=== PATIENT | male | born 1980 | race Caucasian/White ===

== ENCOUNTER 2017-05-12 09:13 | Emergency (ER) | payer OTHER ==
[2017-05-12 09:23] VITALS: BP 138/65; PULSE 99; RESP 16; TEMP 98
--- NOTE | 2017-05-12 09:45 | ED ---
General Adult HPI - General Chief complaint: ENT Stated complaint: left ear pain Time Seen by Provider: 05/12/17 09:35 Source: patient, RN notes reviewed Mode of arrival: ambulatory Limitations: no limitations - History of Present Illness Initial comments: 36-year-old male presents to the emergency department with a chief complaint of left-sided ear pain. Patient states she's had this for the past 2 days. Patient states she's had this in the past and his doctor told him he had fluid on the ear. Patient states he is having the exact same symptoms. Patient states isn't feeling he is sick. Patient's any drainage from the ear. Patient states he just has a fullness to that ear. Patient states he hasn't had any fever chills with this. Patient denies any cough cold or runny nose. Patient was concerned due to his continued left ear pain so he thought that he should be evaluated.Patient denies any recent fever, chills, shortness of breath, chest pain, back pain, abdominal pain, nausea vomiting, numbness or tingling, dysuria or hematuria, constipation or diarrhea, headaches or visual changes, or any other current symptoms. - Related Data Previous Rx's Medication Instructions Recorded Pseudoephedrine HCl [Sudafed 240 mg PO DAILY #10 tab.er.24h 05/12/17 24-Hour] Allergies Allergy/AdvReac Type Severity Reaction Status Date / Time No Known Allergies Allergy Verified 05/12/17 09:35 Review of Systems ROS Statement: Those systems with pertinent positive or pertinent negative responses have been documented in the HPI. ROS Other: All systems not noted in ROS Statement are negative. Past Medical History Past Medical History: No Reported History Additional Past Medical History / Comment(s): Chronic back pain. History of Any Multi-Drug Resistant Organisms: None Reported Past Surgical History: No Surgical Hx Reported Additional Past Surgical History / Comment(s): Bilateral cheek fracture/repair- pt. reports this was "a couple years ago." Past Anesthesia/Blood Transfusion Reactions: No Reported Reaction Past Psychological History: No Psychological Hx Reported, Bipolar Smoking Status: Current every day smoker - Past Family History Father Additional Family Medical History / Comment(s): He should've states he does not know anything about his father but he knows he has and has history of alcohol abuse. Mother Family Medical History: COPD Additional Family Medical History / Comment(s): Mother at 62 from COPD Sister(s) Additional Family Medical History / Comment(s): Patient states he has one sister that he is not in contact with. He has no brothers and no children. General Exam - General Exam Comments Initial Comments: General exam: Alert, active, comfortable in no apparent distress Head: Normocephalic Eyes: Normal reaction of pupils, equal size, normal range of extraocular motion Ears: normal external ear canals, pink tympanic membranes with normal cone of light minimal fluid noted behind left tympanic membrane Nose: clear with pink turbinates Throat: no erythema or exudates with normal sized tonsils Neck: no masses, no nuchal rigidity Chest: no chest wall deformity Lungs: equal air entry with no crackles or wheeze CVS: S1 and S2 normal with no audible mumurs, regular rhythm Spine: no scoliosis or deformity Skin: no rashes Neurological: No focal deficits, tone is normal in all 4 extremities Limitations: no limitations Course Vital Signs 05/12/17 09:21 Temperature 98 F Pulse Rate 99 Respiratory 16 Rate Blood Pressure 138/65 O2 Sat by Pulse 97 Oximetry Medical Decision Making - Medical Decision Making 36-year-old male presents for left ear pain. Tenderness minimal fluid noted behind the left ear. This time was patient Sudafed to see if this doesn't alleviate his symptoms. We discussed follow-up with Dr. patel parameters all patient's questions. He stated that he understood any significant plan. All questions have been answered. He will be discharged home. Disposition Clinical Impression: Fluid level behind tympanic membrane of left ear Disposition: HOME SELF-CARE Condition: Stable Instructions: Earache (ED) Additional Instructions: Please use medication as discussed. Please follow up with family doctor if symptoms have not improved over the next two days. Please return to the emergency room if your symptoms increase or worsen or for any other concerns. Prescriptions: Pseudoephedrine HCl [Sudafed 24-Hour] 240 mg PO DAILY #10 tab.er.24h Referrals: Harriett Allred MD [STAFF PHYSICIAN] - 1-2 days Time of Disposition: 09:44
== END 2017-05-12 09:58 | disposition home or self-care (01) ==
LOC: EC 09:13
DX: H73.892 Other specified disorders of tympanic membrane, left ear (principal); F17.200 Nicotine dependence, unspecified, uncomplicated
CPT/HCPCS: 99282

== ENCOUNTER 2017-08-28 17:51 | Emergency (ER) | payer BC, OTHER ==
[2017-08-28 18:21] VITALS: RESP 18
--- NOTE | 2017-08-28 18:59 | ED ---
General Adult HPI - General Chief complaint: Extremity Injury, Lower Stated complaint: Knee pain Time Seen by Provider: 08/28/17 18:34 Source: patient, RN notes reviewed Mode of arrival: ambulatory Limitations: no limitations - History of Present Illness Initial comments: Patient is a 37-year-old male who presents emergency room today with chief complaint of an injury to the left knee. States he was at work yesterday when he twisted it. Patient states that it's worse with certain movements especially when he tries to pivot. Patient denies any other complaints or symptoms. Patient denies any recent fever, chills, shortness of breath, chest pain, back pain, abdominal pain, nausea or vomiting, numbness or tingling, headaches or visual changes, or any other complaints. - Related Data Previous Rx's Medication Instructions Recorded Ibuprofen [Motrin] 600 mg PO Q6HR PRN #40 day 08/28/17 Allergies Allergy/AdvReac Type Severity Reaction Status Date / Time No Known Allergies Allergy Verified 08/28/17 18:45 Review of Systems ROS Statement: Those systems with pertinent positive or pertinent negative responses have been documented in the HPI. ROS Other: All systems not noted in ROS Statement are negative. Past Medical History Past Medical History: No Reported History Additional Past Medical History / Comment(s): Chronic back pain. History of Any Multi-Drug Resistant Organisms: None Reported Past Surgical History: No Surgical Hx Reported Additional Past Surgical History / Comment(s): Bilateral cheek fracture/repair- pt. reports this was "a couple years ago." Past Anesthesia/Blood Transfusion Reactions: No Reported Reaction Past Psychological History: Anxiety, Bipolar, Depression Smoking Status: Current every day smoker Past Alcohol Use History: None Reported Past Drug Use History: Marijuana - Past Family History Father Additional Family Medical History / Comment(s): He should've states he does not know anything about his father but he knows he has and has history of alcohol abuse. Mother Family Medical History: COPD Additional Family Medical History / Comment(s): Mother at 62 from COPD Sister(s) Additional Family Medical History / Comment(s): Patient states he has one sister that he is not in contact with. He has no brothers and no children. General Exam - General Exam Comments Initial Comments: General: The patient is awake and alert, in no distress, and does not appear acutely ill. Neck: The neck is supple, there is no tenderness or JVD. Cardiovascular: There is a regular rate and rhythm. No murmur, rub or gallop is appreciated. Respiratory: Lungs are clear to auscultation, respirations are non-labored, breath sounds are equal. No wheezes, stridor, rales, or rhonchi. Musculoskeletal: Patient does have moderate swelling to left knee. Shows good range of motion both flexion and extension. Does have tenderness over the lateral and medial aspects with valgus and varus stress. Sensation is intact pulses equal bilaterally 2+. Strength 5/5. Neurological: A&O x 3. CN II-XII intact, There are no obvious motor or sensory deficits. Coordination appears grossly intact. Speech is normal. Skin: Skin is warm and dry and no rashes or lesions are noted. Psychiatric: Normal mood and affect. Limitations: no limitations Course Vital Signs 08/28/17 18:19 Temperature 98.5 F Pulse Rate 87 Respiratory 18 Rate Blood Pressure 118/59 O2 Sat by Pulse 95 Oximetry Medical Decision Making - Medical Decision Making The patient's x-rays reviewed are negative for any acute fracture dislocation. Patient given a knee immobilizer here in the emergency room for stability and will be discharged home with anti-inflammatories and crutches to use. Advised follow-up with orthopedics over the next 2 days. Disposition Clinical Impression: Knee injury Disposition: HOME SELF-CARE Condition: Good Instructions: Knee Pain (ED) Additional Instructions: Please follow-up with orthopedics over the next 2 days. Please use knee immobilizer when up and moving around. Please do not sleep with knee immobilizer on. Please ice elevate the affected area. Please return here to the emergency room if any symptoms increase or worsen or for any other concerns. Prescriptions: Ibuprofen [Motrin] 600 mg PO Q6HR PRN #40 day PRN Reason: Pain Referrals: None,Stated [Primary Care Provider] - 1-2 days Wilbert Blackwell MD [STAFF PHYSICIAN] - 1-2 days Time of Disposition: 19:26
[2017-08-28 19:35] VITALS: BP 119/60; PULSE 80; TEMP 98.3
--- NOTE | 2017-08-28 19:44 | XR ---
PROCEDURE: XR knee complete LT - 3V DATE AND TIME: 08/28/2017 7:01 PM REFERRING PHYSICIAN: Melvin Alegria CLINICAL INDICATION: PHH, Pain TECHNIQUE: Department protocol. COMPARISON: None FINDINGS: There is no fracture or malalignment. The soft tissues are unremarkable. IMPRESSION: NO ACUTE PROCESS.
== END 2017-08-28 19:35 | disposition home or self-care (01) ==
LOC: EC 17:51
DX: S89.92XA Unspecified injury of left lower leg, initial encounter (principal); F17.200 Nicotine dependence, unspecified, uncomplicated; X50.1XXA Overexertion from prolonged static or awkward postures, initial encounter; Y93.89 Activity, other specified; Y99.0 Civilian activity done for income or pay; Y92.69 Other specified industrial and construction area as the place of occurrence of the external cause
CPT/HCPCS: 73562; 99283; L1830

== ENCOUNTER 2017-09-25 04:18 | Emergency (ER) | payer BC ==
--- NOTE | 2017-09-25 05:16 | ED ---
SOB HPI - General Chief Complaint: Shortness of Breath Stated Complaint: KELLY Time Seen by Provider: 09/25/17 04:25 Source: patient Mode of arrival: ambulatory Limitations: no limitations - History of Present Illness Initial Comments: This patient is a 37-year-old man who presents with complaint that he believes he has pneumonia. The patient states that over the past night he has had pain to the right mid back, as well as a little bit of a cough and also some mild shortness of breath. MD Complaint: shortness of breath, cough, chest pain -: hour(s) Radiation: back Severity: moderate Quality: aching Consistency: constant Improves With: nothing Worsens With: nothing Associated Symptoms: cough Treatments Prior to Arrival: none - Related Data Previous Rx's Medication Instructions Recorded Ibuprofen [Motrin] 600 mg PO Q6HR PRN #40 day 08/28/17 Azithromycin [Zithromax Z-pack] 250 mg PO DIRECTED #6 tab 09/25/17 Allergies Allergy/AdvReac Type Severity Reaction Status Date / Time No Known Allergies Allergy Verified 09/25/17 04:26 Review of Systems ROS Statement: Those systems with pertinent positive or pertinent negative responses have been documented in the HPI. ROS Other: All systems not noted in ROS Statement are negative. Constitutional: Denies: fever, chills Respiratory: Reports: as per HPI, cough, dyspnea. Denies: hemoptysis Cardiovascular: Denies: chest pain, palpitations, edema Gastrointestinal: Denies: abdominal pain, nausea, vomiting Genitourinary: Denies: dysuria, hematuria Musculoskeletal: Reports: as per HPI, back pain Skin: Denies: rash Neurological: Denies: headache, weakness, numbness Past Medical History Past Medical History: No Reported History Additional Past Medical History / Comment(s): Chronic back pain. History of Any Multi-Drug Resistant Organisms: None Reported Past Surgical History: No Surgical Hx Reported Additional Past Surgical History / Comment(s): Bilateral cheek fracture/repair- pt. reports this was "a couple years ago." Past Anesthesia/Blood Transfusion Reactions: No Reported Reaction Past Psychological History: Anxiety, Bipolar, Depression Smoking Status: Current every day smoker Past Alcohol Use History: None Reported Past Drug Use History: Marijuana - Past Family History Father Additional Family Medical History / Comment(s): He should've states he does not know anything about his father but he knows he has and has history of alcohol abuse. Mother Family Medical History: COPD Additional Family Medical History / Comment(s): Mother at 62 from COPD Sister(s) Additional Family Medical History / Comment(s): Patient states he has one sister that he is not in contact with. He has no brothers and no children. General Exam Limitations: no limitations General appearance: alert Head exam: Present: atraumatic, normocephalic Eye exam: Present: normal appearance. Absent: scleral icterus, conjunctival injection Neck exam: Present: normal inspection Respiratory exam: Present: normal lung sounds bilaterally, wheezes. Absent: respiratory distress, rales, rhonchi, stridor Cardiovascular Exam: Present: regular rate, normal rhythm, normal heart sounds. Absent: systolic murmur, diastolic murmur, rubs, gallop GI/Abdominal exam: Present: soft. Absent: distended, tenderness, guarding, rebound, mass Extremities exam: Present: normal inspection, normal capillary refill. Absent: pedal edema, calf tenderness Back exam: Present: paraspinal tenderness. Absent: CVA tenderness (R), CVA tenderness (L) Neurological exam: Present: alert Skin exam: Present: warm, dry, intact, normal color. Absent: rash Course Vital Signs 09/25/17 09/25/17 09/25/17 04:19 06:36 07:31 Temperature 97.8 F 98.1 F Pulse Rate 78 72 78 Respiratory 20 18 14 Rate Blood Pressure 147/76 143/75 142/88 O2 Sat by Pulse 93 L 99 96 Oximetry Medical Decision Making - Lab Data Result diagrams: 09/25/17 06:07 09/25/17 06:07 Lab Results 09/25/17 09/25/17 09/25/17 Range/Units 05:11 06:07 06:07 WBC 12.3 H (3.8-10.6) k/uL RBC 4.80 (4.30-5.90) m/uL Hgb 14.6 (13.0-17.5) gm/dL Hct 44.2 (39.0-53.0) % MCV 92.0 (80.0-100.0) fL MCH 30.3 (25.0-35.0) pg MCHC 32.9 (31.0-37.0) g/dL RDW 12.9 (11.5-15.5) % Plt Count 264 (150-450) k/uL Neutrophils % 81 % Lymphocytes % 8 % Monocytes % 3 % Eosinophils % 6 % Basophils % 0 % Neutrophils # 10.0 H (1.3-7.7) k/uL Lymphocytes # 0.9 L (1.0-4.8) k/uL Monocytes # 0.4 (0-1.0) k/uL Eosinophils # 0.8 H (0-0.7) k/uL Basophils # 0.0 (0-0.2) k/uL D-Dimer (<0.60) mg/L FEU Sodium 142 (137-145) mmol/L Potassium 4.2 (3.5-5.1) mmol/L Chloride 103 (98-107) mmol/L Carbon Dioxide 26 (22-30) mmol/L Anion Gap 13 mmol/L BUN 11 (9-20) mg/dL Creatinine 1.00 (0.66-1.25) mg/dL Est GFR (MDRD) Af Amer >60 (>60 ml/min/1.73 sqM) Est GFR (MDRD) Non-Af >60 (>60 ml/min/1.73 sqM) Glucose 89 (74-99) mg/dL Calcium 9.7 (8.4-10.2) mg/dL Total Bilirubin 1.1 (0.2-1.3) mg/dL AST 26 (17-59) U/L ALT 31 (21-72) U/L Alkaline Phosphatase 85 (38-126) U/L C-Reactive Protein 12.6 H (<10.0) mg/L Total Protein 7.6 (6.3-8.2) g/dL Albumin 4.5 (3.5-5.0) g/dL Urine Color Yellow Urine Appearance Clear (Clear) Urine pH 6.0 (5.0-8.0) Ur Specific [place] 1.019 (1.001-1.035) Urine Protein Trace H (Negative) Urine Glucose (UA) Negative (Negative) Urine Ketones 2+ H (Negative) Urine Blood Negative (Negative) Urine Nitrite Negative (Negative) Urine Bilirubin Negative (Negative) Urine Urobilinogen 3.0 (<2.0) mg/dL Ur Leukocyte Esterase Negative (Negative) Urine Opiates Screen Detected H (NotDetected) Ur Oxycodone Screen Not Detected (NotDetected) Urine Methadone Screen Not Detected (NotDetected) Ur Propoxyphene Screen Not Detected (NotDetected) Ur Barbiturates Screen Not Detected (NotDetected) U Tricyclic Antidepress Not Detected (NotDetected) Ur Phencyclidine Scrn Not Detected (NotDetected) Ur Amphetamines Screen Detected H (NotDetected) U Methamphetamines Scrn Detected H (NotDetected) U Benzodiazepines Scrn Not Detected (NotDetected) Urine Cocaine Screen Detected H (NotDetected) U Marijuana (THC) Screen Detected H (NotDetected) 09/25/17 Range/Units 06:07 WBC (3.8-10.6) k/uL RBC (4.30-5.90) m/uL Hgb (13.0-17.5) gm/dL Hct (39.0-53.0) % MCV (80.0-100.0) fL MCH (25.0-35.0) pg MCHC (31.0-37.0) g/dL RDW (11.5-15.5) % Plt Count (150-450) k/uL Neutrophils % % Lymphocytes % % Monocytes % % Eosinophils % % Basophils % % Neutrophils # (1.3-7.7) k/uL Lymphocytes # (1.0-4.8) k/uL Monocytes # (0-1.0) k/uL Eosinophils # (0-0.7) k/uL Basophils # (0-0.2) k/uL D-Dimer 0.47 (<0.60) mg/L FEU Sodium (137-145) mmol/L Potassium (3.5-5.1) mmol/L Chloride (98-107) mmol/L Carbon Dioxide (22-30) mmol/L Anion Gap mmol/L BUN (9-20) mg/dL Creatinine (0.66-1.25) mg/dL Est GFR (MDRD) Af Amer (>60 ml/min/1.73 sqM) Est GFR (MDRD) Non-Af (>60 ml/min/1.73 sqM) Glucose (74-99) mg/dL Calcium (8.4-10.2) mg/dL Total Bilirubin (0.2-1.3) mg/dL AST (17-59) U/L ALT (21-72) U/L Alkaline Phosphatase (38-126) U/L C-Reactive Protein (<10.0) mg/L Total Protein (6.3-8.2) g/dL Albumin (3.5-5.0) g/dL Urine Color Urine Appearance (Clear) Urine pH (5.0-8.0) Ur Specific [place] (1.001-1.035) Urine Protein (Negative) Urine Glucose (UA) (Negative) Urine Ketones (Negative) Urine Blood (Negative) Urine Nitrite (Negative) Urine Bilirubin (Negative) Urine Urobilinogen (<2.0) mg/dL Ur Leukocyte Esterase (Negative) Urine Opiates Screen (NotDetected) Ur Oxycodone Screen (NotDetected) Urine Methadone Screen (NotDetected) Ur Propoxyphene Screen (NotDetected) Ur Barbiturates Screen (NotDetected) U Tricyclic Antidepress (NotDetected) Ur Phencyclidine Scrn (NotDetected) Ur Amphetamines Screen (NotDetected) U Methamphetamines Scrn (NotDetected) U Benzodiazepines Scrn (NotDetected) Urine Cocaine Screen (NotDetected) U Marijuana (THC) Screen (NotDetected) Disposition Clinical Impression: Pneumonia Disposition: HOME SELF-CARE Condition: Fair Instructions: Pneumonia (ED) Prescriptions: Azithromycin [Zithromax Z-pack] 250 mg PO DIRECTED #6 tab Referrals: None,Stated [Primary Care Provider] - 1-2 days
[2017-09-25 05:20] LABS: Appearance,Urine Clear (Clear); Bilirubin,Urine Negative (Negative); Blood,Urine Negative (Negative); Color,Urine Yellow; Glucose,Urine (UA) Negative (Negative); Ketones,Urine 2+ (Negative); Leukocyte Esterase,Urine Negative (Negative); Nitrite,Urine Negative (Negative); Protein,Urine Trace (Negative); Specific Gravity,Urine 1.019 (1.001-1.035)
--- NOTE | 2017-09-25 05:39 | XR ---
EXAM: XR Chest, 2 Views CLINICAL HISTORY: ITS.REASON XR Reason: cough TECHNIQUE: Frontal and lateral views of the chest. COMPARISON: None. FINDINGS: Lungs: Unremarkable. The lungs are clear. Pleural space: Unremarkable. No pneumothorax. Heart: Unremarkable. No cardiomegaly. Mediastinum: Unremarkable. Bones/joints: Unremarkable. IMPRESSION: Normal chest x-rays.
[2017-09-25 05:40] LABS: Amphetamine Screen,Urine Detected (NotDetected); Barbiturate Screen,Urine Not Detected (NotDetected); Benzodiazepines Screen,Urine Not Detected (NotDetected); Cocaine Screen,Urine Detected (NotDetected); Methadone Screen, Urine Not Detected (NotDetected); Opiate Screen,Urine Detected (NotDetected); Oxycodone Screen, Urine Not Detected (NotDetected); Phencyclidine Screen,Urine Not Detected (NotDetected); Tricyclic Antidepressant,Urine Not Detected (NotDetected); Urn Cannabinoid Scrn Detected (NotDetected)
[2017-09-25 06:16] LABS: Basophils % (A) 0 %; Eosinophils # (A) 0.8 k/uL (0-0.7); Eosinophils % (A) 6 %; HCT 44.2 % (39.0-53.0); HGB 14.6 gm/dL (13.0-17.5); Lymphocytes # (A) 0.9 k/uL (1.0-4.8); Lymphocytes % (A) 8 %; MCH 30.3 pg (25.0-35.0); MCHC 32.9 g/dL (31.0-37.0); Mean Platelet Volume 7.5; Monocytes # (A) 0.4 k/uL (0-1.0); Monocytes % (A) 3 %; Neutrophils % (A) 81 %; Platelet Count 264 k/uL (150-450); RDW 12.9 % (11.5-15.5); WBC 12.3 k/uL (3.8-10.6)
[2017-09-25 06:34] LABS: ALT 31 U/L (21-72); AST 26 U/L (17-59); Albumin 4.5 g/dL (3.5-5.0); Alkaline Phosphatase 85 U/L (38-126); Anion Gap 13 mmol/L; Blood Urea Nitrogen 11 mg/dL (9-20); C Reactive Protein 12.6 mg/L (<10.0); Calcium 9.7 mg/dL (8.4-10.2); Carbon Dioxide 26 mmol/L (22-30); Chloride 103 mmol/L (98-107); Glucose 89 mg/dL (74-99); Potassium 4.2 mmol/L (3.5-5.1); Sodium 142 mmol/L (137-145); Total Bilirubin 1.1 mg/dL (0.2-1.3); Total Protein 7.6 g/dL (6.3-8.2)
[2017-09-25] MEDS ORDERED: RX INFO: IV CONTRAST WAS GIVEN 1 EACH MISC MISCELLANE PRN (06:52)
[2017-09-25] MEDS ORDERED: HYDROcodone/APAP 5-325MG 1 EACH TAB PO STA (06:53)
[2017-09-25 07:32] VITALS: BP 142/88; PULSE 78; RESP 14; TEMP 98.1
--- NOTE | 2017-09-25 07:36 | CT ---
EXAMINATION TYPE: CT thoracic spine w con DATE OF EXAM: 09/25/2017 COMPARISON: NONE HISTORY: 37-year-old male Lower Thoracic spine pain TECHNIQUE: Contiguous axial scanning of the thoracic spine performed with IV Contrast, patient inject ed with 100 mL of Omnipaque 300. Coronal/sagittal reconstructions performed. CT DLP: 638.9 mGycm Automated exposure control for dose reduction was used. FINDINGS: Vertebral body heights are preserved and alignment is maintained. There is mild degenerative disc disease and endplate spondylosis mid to lower thoracic spine. Inferio r endplate Schmorl's node of T11 is noted. There is a prominent Schmorl's node anteriorly and towards the left which extends to the anterior david tebral cortex. Additionally, there is a bridging left lateral endplate spur at T10-T11. No paravertebral soft tissue abnormality or abnormal disc interspace widening. Allowing for CT technique, no definite epidural lesion is identified particular attention to the lowe r thoracic spine. Patchy dependent atelectasis at the posterior lung bases. Small hiatal hernia. IMPRESSION: 1. No vertebral compression collapse or malalignment. 2. An inferior endplate Schmorl's node of T11. The Schmorl's node extends to the anterior vertebral c ortex and is probably subacute or chronic. No surrounding inflammatory changes. 3. Mild endplate spondylosis mid to lower thoracic spine. There is a bridging endplate spur left late rally at T10-T11. 4. No specific CT findings of discitis osteomyelitis. However, note limited sensitivity of CT for epi dural abscess and early discitis/osteomyelitis. If persistent concern, MRI can be performed.
[2017-09-25] MEDS ORDERED: cefTRIAXone IN SWFI 1,000 MG/10 ML SYRINGE IVP STA (07:38)
[2017-09-25] MEDS ORDERED: AZITHROMYCIN 500 MG TAB PO STA (07:38)
== END 2017-09-25 08:11 | disposition home or self-care (01) ==
LOC: EC 04:18
DX: J18.9 Pneumonia, unspecified organism (principal); F17.200 Nicotine dependence, unspecified, uncomplicated; Z82.5 Family history of asthma and other chronic lower respiratory diseases
CPT/HCPCS: 36415; 85379; 80053; 85025; 86140; 81003; 80306; 71046; 72129; 99285; 96374; J0696; Q9967

== ENCOUNTER 2020-02-17 18:32 | Emergency (ER) | payer BC, OTHER ==
[2020-02-17 18:59] VITALS: RESP 18
[2020-02-17] MEDS ORDERED: KETOROLAC 30 MG/ML 1 ML VIAL IVP STA (19:41)
[2020-02-17] MEDS ORDERED: SODIUM CHLORIDE 0.9% 1,000 ML IV ONE (19:41)
[2020-02-17 20:14] VITALS: BP 134/89; PULSE 90
[2020-02-17 20:19] LABS: Basophils # (A) 0.1 k/uL (0-0.2); Basophils % (A) 1 %; Eosinophils # (A) 0.3 k/uL (0-0.7); Eosinophils % (A) 5 %; HCT 46.2 % (39.0-53.0); HGB 14.4 gm/dL (13.0-17.5); Lymphocytes # (A) 1.9 k/uL (1.0-4.8); Lymphocytes % (A) 28 %; MCH 29.4 pg (25.0-35.0); MCHC 31.2 g/dL (31.0-37.0); MCV 94.3 fL (80.0-100.0); Mean Platelet Volume 7.3; Monocytes # (A) 0.3 k/uL (0-1.0); Monocytes % (A) 4 %; Neutrophils # (A) 4.2 k/uL (1.3-7.7); Neutrophils % (A) 61 %; Platelet Count 359 k/uL (150-450); RDW 13.8 % (11.5-15.5); WBC 6.9 k/uL (3.8-10.6)
[2020-02-17 20:31] LABS: ALT 64 U/L (4-49); AST 75 U/L (17-59); African American GFR (CKD) >90 (>60 ml/min/1.73 sqM); Albumin 4.2 g/dL (3.5-5.0); Alkaline Phosphatase 113 U/L (38-126); Anion Gap 9 mmol/L; Blood Urea Nitrogen 6 mg/dL (9-20); Calcium 9.1 mg/dL (8.4-10.2); Carbon Dioxide 25 mmol/L (22-30); Chloride 107 mmol/L (98-107); Glucose 94 mg/dL (74-99); Non-African American GFR(CKD) >90 (>60 ml/min/1.73 sqM); Potassium 4.4 mmol/L (3.5-5.1); Sodium 141 mmol/L (137-145); Total Bilirubin 0.6 mg/dL (0.2-1.3); Total Protein 7.6 g/dL (6.3-8.2)
--- NOTE | 2020-02-17 21:02 | ED ---
Extremity Problem HPI - General Chief complaint: Extremity Problem,Nontraumatic Stated complaint: Abscess Time Seen by Provider: 02/17/20 19:04 Source: patient, EMS Mode of arrival: EMS Limitations: no limitations - History of Present Illness Initial comments: 39-year-old male patient presents to the emergency department today for evaluation of left antecubital pain. Patient states that he started having the pain approximately one week ago after shooting up heroin into the site. Patient states that the pain is in worsening over the last week. States it is now more increasingly difficult to straighten his arm out. States he is having pain up into the bicep muscle. He denies any fever or chills. Denies numbness or tingling to the hand. Denies history of similar symptoms. Patient denies any recent rash, cough, shortness of breath, chest pain, abdominal pain, nausea, vomiting, diarrhea, constipation, back pain, dizziness, weakness, hematuria, dysuria, urinary urgency, urinary frequency, headache, visual changes, or any other complaints. - Related Data Previous Rx's Medication Instructions Recorded Ibuprofen [Motrin] 600 mg PO Q6HR PRN #40 day 08/28/17 Azithromycin [Zithromax Z-pack] 250 mg PO DIRECTED #6 tab 09/25/17 Ibuprofen [Motrin] 600 mg PO Q8HR PRN #30 tab 02/17/20 Allergies Allergy/AdvReac Type Severity Reaction Status Date / Time No Known Allergies Allergy Verified 09/25/17 07:41 Review of Systems ROS Statement: Those systems with pertinent positive or pertinent negative responses have been documented in the HPI. ROS Other: All systems not noted in ROS Statement are negative. Past Medical History Past Medical History: No Reported History Additional Past Medical History / Comment(s): Chronic back pain. History of Any Multi-Drug Resistant Organisms: None Reported Past Surgical History: No Surgical Hx Reported Additional Past Surgical History / Comment(s): Bilateral cheek fracture/repair- pt. reports this was "a couple years ago." Past Anesthesia/Blood Transfusion Reactions: No Reported Reaction Past Psychological History: Anxiety, Bipolar, Depression Smoking Status: Current every day smoker Past Alcohol Use History: Abuse, Daily Past Drug Use History: Heroin, IV Drug Use, Marijuana - Past Family History Father Additional Family Medical History / Comment(s): He should've states he does not know anything about his father but he knows he has and has history of alcohol abuse. Mother Family Medical History: COPD Additional Family Medical History / Comment(s): Mother at 62 from COPD Sister(s) Additional Family Medical History / Comment(s): Patient states he has one sister that he is not in contact with. He has no brothers and no children. General Exam Limitations: no limitations General appearance: alert, in no apparent distress, other (This is a well-develo ped, well-nourished adult male patient in no acute distress. Vital signs upon presentation are temperature pulse 87, respirations 18, blood pressure 127/88, pulse ox 97% on room air.) Eye exam: Present: normal appearance, PERRL, EOMI. Absent: scleral icterus, conjunctival injection, periorbital swelling ENT exam: Present: normal exam, normal oropharynx, mucous membranes moist Respiratory exam: Present: normal lung sounds bilaterally. Absent: respiratory distress, wheezes, rales, rhonchi, stridor Cardiovascular Exam: Present: regular rate, normal rhythm, normal heart sounds. Absent: systolic murmur, diastolic murmur, rubs, gallop, clicks Extremities exam: Present: full ROM, tenderness (Left antecubital tenderness, left bicep tenderness. ), normal capillary refill, other (Mild swelling around the left antecubital region. No erythema. No warmth. Skin is otherwise pink, warm, dry. Cap refills less than 3 seconds. Radial pulses 2+ and equal bilaterally.). Absent: normal inspection, pedal edema, joint swelling, calf tenderness Neurological exam: Present: alert, oriented X3, CN II-XII intact Psychiatric exam: Present: normal affect, normal mood Skin exam: Present: warm, dry, intact, normal color. Absent: rash Course Vital Signs 02/17/20 02/17/20 18:52 20:12 Pulse Rate 87 90 Respiratory 18 18 Rate Blood Pressure 127/88 134/89 O2 Sat by Pulse 97 95 Oximetry Medical Decision Making - Medical Decision Making 39-year-old male patient who is a known IV drug user presents to the emergency department today for evaluation of left arm pain especially over the left antecubital region. Physical examination did reveal a palpable cord over the antecubital fossa. There is mild local swelling, no erythema, no warmth. Remainder of the arm is neurovascularly intact with good radial pulses. Patient is afebrile, vital signs. Labs reviewed and revealed normal white blood cell count. Ultrasound was obtained and did reveal a superficial venous thrombosis of the left upper extremity with extension from mid forearm to mid upper arm. We did discuss the case with on-call vascular Dr. Donaldson who recommends NSAIDs and warm compresses. He will follow-up outpatient with her. He is instructed follow up with his primary care physician for recheck in 1-2 days. Return parameters were discussed in detail. He verbalizes understanding and agrees with this plan. - Lab Data Result diagrams: 02/17/20 20:09 02/17/20 20:09 Lab Results 02/17/20 02/17/20 Range/Units 20:09 20:09 WBC 6.9 (3.8-10.6) k/uL RBC 4.90 (4.30-5.90) m/uL Hgb 14.4 (13.0-17.5) gm/dL Hct 46.2 (39.0-53.0) % MCV 94.3 (80.0-100.0) fL MCH 29.4 (25.0-35.0) pg MCHC 31.2 (31.0-37.0) g/dL RDW 13.8 (11.5-15.5) % Plt Count 359 (150-450) k/uL Neutrophils % 61 % Lymphocytes % 28 % Monocytes % 4 % Eosinophils % 5 % Basophils % 1 % Neutrophils # 4.2 (1.3-7.7) k/uL Lymphocytes # 1.9 (1.0-4.8) k/uL Monocytes # 0.3 (0-1.0) k/uL Eosinophils # 0.3 (0-0.7) k/uL Basophils # 0.1 (0-0.2) k/uL Sodium 141 (137-145) mmol/L Potassium 4.4 (3.5-5.1) mmol/L Chloride 107 (98-107) mmol/L Carbon Dioxide 25 (22-30) mmol/L Anion Gap 9 mmol/L BUN 6 L (9-20) mg/dL Creatinine 0.71 (0.66-1.25) mg/dL Est GFR (CKD-EPI)AfAm >90 (>60 ml/min/1.73 sqM) Est GFR (CKD-EPI)NonAf >90 (>60 ml/min/1.73 sqM) Glucose 94 (74-99) mg/dL Calcium 9.1 (8.4-10.2) mg/dL Total Bilirubin 0.6 (0.2-1.3) mg/dL AST 75 H (17-59) U/L ALT 64 H (4-49) U/L Alkaline Phosphatase 113 (38-126) U/L Total Protein 7.6 (6.3-8.2) g/dL Albumin 4.2 (3.5-5.0) g/dL - Radiology Data Radiology results: report reviewed Ultrasound of the left upper extremity is obtained. Report was reviewed in its entirety. Impression by Dr. Wheeler shows confirmation of acute superficial venous thrombosis in left upper extremity at the area of the clinical concern in the cephalic vein. This extends from the mid upper arm to the mid forearm. Disposition Clinical Impression: Superficial venous thrombosis of left arm Disposition: HOME SELF-CARE Condition: Good Instructions (If sedation given, give patient instructions): Superficial Thrombophlebitis (ED) Additional Instructions: Apply warm compresses to the left arm. Take ibuprofen as directed with meals. Follow-up with your primary care physician for recheck in 1-2 days. Follow-up with a vascular specialist for further evaluation of your blood clot. Return to the emergency department immediately for any new, worsening, or concerning s ymptoms. Prescriptions: Ibuprofen [Motrin] 600 mg PO Q8HR PRN #30 tab PRN Reason: Pain Is patient prescribed a controlled substance at d/c from ED?: No Referrals: Stefany Donaldson DO [STAFF PHYSICIAN] - 1-2 days Time of Disposition: 21:52
--- NOTE | 2020-02-17 21:34 | US ---
EXAMINATION TYPE: US extremity nonvasculr ltd LT DATE OF EXAM: 02/17/2020 COMPARISON: NONE CLINICAL HISTORY: Left antecubital pain tenderness; left bicep pain. Left antecubital pain/tenderness ; left bicep pain x 5 days. Scanned left antecubital area and left bicep area of concern. Superficial vessel visualized without c olor flow. Vessel does not appear to compress. There appears to be thrombus within the cephalic vein from mid upper arm through mid forearm branches. Cephalic vein at upper arm near axilla appears to co mpress. Minimal images taken of brachial and basilic veins to show compression and color flow. Complete venous study not performed. IMPRESSION: Confirmation of acute superficial venous thrombosis in the left upper extremity at area of clinical concern and in the cephalic vein.
== END 2020-02-17 22:52 | disposition home or self-care (01) ==
LOC: EC 18:32
DX: I82.612 Acute embolism and thrombosis of superficial veins of left upper extremity (principal); F17.200 Nicotine dependence, unspecified, uncomplicated
CPT/HCPCS: 36415; 80053; 85025; 87040; 76882; 99284; 96374; 96361; J1885

== ENCOUNTER 2021-04-06 14:47 | Emergency (ER) | payer OTHER ==
[2021-04-06 14:59] VITALS: TEMP 98.4
[2021-04-06] MEDS ORDERED: SODIUM CHLORIDE 0.9% 1,000 ML IV STA (15:24)
[2021-04-06 16:08] LABS: Basophils % (A) 1 %; Eosinophils # (A) 0.1 k/uL (0-0.7); Eosinophils % (A) 2 %; HGB 14.4 gm/dL (13.0-17.5); Lymphocytes % (A) 16 %; MCH 32.3 pg (25.0-35.0); MCHC 33.6 g/dL (31.0-37.0); MCV 96.1 fL (80.0-100.0); Mean Platelet Volume 8.1; Monocytes # (A) 0.2 k/uL (0-1.0); Monocytes % (A) 3 %; Neutrophils # (A) 4.6 k/uL (1.3-7.7); Neutrophils % (A) 75 %; Platelet Count 284 k/uL (150-450); RBC 4.48 m/uL (4.30-5.90); RDW 14.3 % (11.5-15.5); WBC 6.2 k/uL (3.8-10.6)
[2021-04-06 16:09] LABS: Appearance,Urine Clear (Clear); Bilirubin,Urine Negative (Negative); Blood,Urine Negative (Negative); Color,Urine Yellow; Glucose,Urine (UA) Negative (Negative); Ketones,Urine Trace (Negative); Leukocyte Esterase,Urine Negative (Negative); Nitrite,Urine Negative (Negative); PH, Urine 6.5 (5.0-8.0); Protein,Urine Negative (Negative); Specific Gravity,Urine 1.007 (1.001-1.035); Urobilinogen,Urine <2.0 mg/dL (<2.0)
[2021-04-06 16:16] LABS: Partial Thromboplastin Time 24.9 sec (22.0-30.0); Prothrombin Time 10.6 sec (9.0-12.0)
[2021-04-06 16:23] LABS: ALT 36 U/L (4-49); AST 42 U/L (17-59); African American GFR (CKD) >90 (>60 ml/min/1.73 sqM); Albumin 4.7 g/dL (3.5-5.0); Alkaline Phosphatase 62 U/L (38-126); Anion Gap 10 mmol/L; Blood Urea Nitrogen 5 mg/dL (9-20); Calcium 9.7 mg/dL (8.4-10.2); Carbon Dioxide 23 mmol/L (22-30); Chloride 105 mmol/L (98-107); Glucose 100 mg/dL (74-99); Lipase 160 U/L (23-300); Non-African American GFR(CKD) >90 (>60 ml/min/1.73 sqM); Potassium 4.3 mmol/L (3.5-5.1); Sodium 138 mmol/L (137-145); Total Bilirubin 1.8 mg/dL (0.2-1.3)
--- NOTE | 2021-04-06 16:24 | ED ---
Abdominal Pain HPI - General Chief Complaint: Abdominal Pain Stated Complaint: Abd Pain Time Seen by Provider: 04/06/21 15:11 Source: patient Mode of arrival: ambulatory Limitations: no limitations - History of Present Illness Initial Comments: 40-year-old male past medical history of IV drug use, hep C, daily alcohol abuse who presents emergency room with reported weakness and presyncope. Patient states that he has had these symptoms for the past several months. He quit drinking 3 months ago. Patient reports that he was at work today when he had sudden onset of presyncope. He felt nauseated, thought he was given a thorough up. He went outside at 9:00 am when he had his first break at work and laid on the picnic table. A coworker was concerned and therefore recommended that he get evaluated. He went into an urgent care. He was reporting that he was having right upper quadrant abdominal pain. A recommended patient come into the emergency department for "liver inflammation". He states he does have a history of hep C. Was seeing a doctor at [facility] for possible treatment however covert hit and he was unable to get treated. States no longer use any intravenous drugs. Reports that he stopped drinking 3 weeks ago. She denies hematemesis. Admits to right upper quadrant abdominal pain with palpation. No changes in his bowel or bladder habits. No history of liver failure. No fevers, chills or cough. No family history of sudden cardiac . No other alleviating, precipitating or modifying factors - Related Data Previous Rx's Medication Instructions Recorded Ibuprofen [Motrin] 600 mg PO Q6HR PRN #40 day 08/28/17 Azithromycin [Zithromax Z-pack (6 250 mg PO DIRECTED #6 tab 09/25/17 tabs)] Ibuprofen [Motrin] 600 mg PO Q8HR PRN #30 tab 02/17/20 Omeprazole 20 mg PO DAILY #30 tab 04/06/21 Sucralfate [Carafate] 1 gm PO ACHS #56 tablet 04/06/21 Allergies Allergy/AdvReac Type Severity Reaction Status Date / Time No Known Allergies Allergy Verified 04/06/21 14:59 Review of Systems ROS Statement: Those systems with pertinent positive or pertinent negative responses have been documented in the HPI. ROS Other: All systems not noted in ROS Statement are negative. Past Medical History Past Medical History: No Reported History Additional Past Medical History / Comment(s): Chronic back pain. History of Any Multi-Drug Resistant Organisms: None Reported Past Surgical History: No Surgical Hx Reported Additional Past Surgical History / Comment(s): Bilateral cheek fracture/repair- pt. reports this was "a couple years ago." Past Anesthesia/Blood Transfusion Reactions: No Reported Reaction Past Psychological History: Anxiety, Bipolar, Depression Smoking Status: Current every day smoker Past Alcohol Use History: Abuse, Daily Past Drug Use History: Heroin, IV Drug Use, Marijuana - Past Family History Father Additional Family Medical History / Comment(s): He should've states he does not know anything about his father but he knows he has and has history of alcohol abuse. Mother Family Medical History: COPD Additional Family Medical History / Comment(s): Mother at 62 from COPD Sister(s) Additional Family Medical History / Comment(s): Patient states he has one sister that he is not in contact with. He has no brothers and no children. General Exam Limitations: no limitations General appearance: alert, in no apparent distress Head exam: Present: atraumatic, normocephalic, normal inspection Eye exam: Present: normal appearance, PERRL, EOMI. Absent: scleral icterus, conjunctival injection, periorbital swelling ENT exam: Present: normal exam, mucous membranes moist Neck exam: Present: normal inspection. Absent: tenderness, meningismus, lymphadenopathy Respiratory exam: Present: normal lung sounds bilaterally. Absent: respiratory distress, wheezes, rales, rhonchi, stridor Cardiovascular Exam: Present: regular rate, normal rhythm, normal heart sounds. Absent: systolic murmur, diastolic murmur, rubs, gallop, clicks GI/Abdominal exam: Present: soft, tenderness (ruq), normal bowel sounds. Absent: distended, guarding, rebound, rigid Extremities exam: Present: normal inspection, full ROM, normal capillary refill. Absent: tenderness, pedal edema, joint swelling, calf tenderness Back exam: Present: normal inspection Neurological exam: Present: alert, oriented X3, CN II-XII intact Psychiatric exam: Present: normal affect, normal mood Skin exam: Present: warm, dry, intact, normal color. Absent: rash Course Vital Signs 04/06/21 04/06/21 04/06/21 14:56 17:17 18:32 Temperature 98.4 F Pulse Rate 61 82 83 Respiratory 19 18 16 Rate Blood Pressure 120/82 116/85 138/92 O2 Sat by Pulse 97 98 100 Oximetry Medical Decision Making - Medical Decision Making Upon arrival patient is placed into room 16. There are history and physical exam was performed. IV was established. Laboratory studies were conducted. Patient was given a liter bolus of normal saline. X-ray was performed. Ultrasound of the patient's right upper quadrant was also performed. Review the patient's labs demonstrate trace ketones. Ultrasound of the right upper quadrant demonstrates no gallstones or dilated ducts. No discrete pancreatic mass. No focal liver defects. Chest x-ray demonstrates no acute findings. 12- lead EKG was performed. Results of the laboratory studies and imaging were discussed with the patient. I did discuss diagnosis, differential and treatment options. At this time the patient will be discharged home with a prescription for omeprazole and Carafate. Patient is also given a Zofran starter pack. Patient states medications as directed and follow up with his primary care doctor for further evaluation. He may need further testing to include an echo, Holter monitoring and an EGD. Patient understood this. He should return to the emergency room for any new or worsening symptoms. Patient was discharged home in stable condition - Lab Data Result diagrams: 04/06/21 15:29 04/06/21 15:29 Lab Results 04/06/21 04/06/21 04/06/21 Range/Units 15:29 15:29 15:29 WBC 6.2 (3.8-10.6) k/uL RBC 4.48 (4.30-5.90) m/uL Hgb 14.4 (13.0-17.5) gm/dL Hct 43.0 (39.0-53.0) % MCV 96.1 (80.0-100.0) fL MCH 32.3 (25.0-35.0) pg MCHC 33.6 (31.0-37.0) g/dL RDW 14.3 (11.5-15.5) % Plt Count 284 (150-450) k/uL MPV 8.1 Neutrophils % 75 % Lymphocytes % 16 % Monocytes % 3 % Eosinophils % 2 % Basophils % 1 % Neutrophils # 4.6 (1.3-7.7) k/uL Lymphocytes # 1.0 (1.0-4.8) k/uL Monocytes # 0.2 (0-1.0) k/uL Eosinophils # 0.1 (0-0.7) k/uL Basophils # 0.0 (0-0.2) k/uL PT 10.6 (9.0-12.0) sec INR 1.0 (<1.2) APTT 24.9 (22.0-30.0) sec Sodium (137-145) mmol/L Potassium (3.5-5.1) mmol/L Chloride (98-107) mmol/L Carbon Dioxide (22-30) mmol/L Anion Gap mmol/L BUN (9-20) mg/dL Creatinine (0.66-1.25) mg/dL Est GFR (CKD-EPI)AfAm (>60 ml/min/1.73 sqM) Est GFR (CKD-EPI)NonAf (>60 ml/min/1.73 sqM) Glucose (74-99) mg/dL Calcium (8.4-10.2) mg/dL Total Bilirubin (0.2-1.3) mg/dL AST (17-59) U/L ALT (4-49) U/L Alkaline Phosphatase (38-126) U/L Troponin I (0.000-0.034) ng/mL Total Protein (6.3-8.2) g/dL Albumin (3.5-5.0) g/dL Lipase (23-300) U/L Urine Color Yellow Urine Appearance Clear (Clear) Urine pH 6.5 (5.0-8.0) Ur Specific Metter 1.007 (1.001-1.035) Urine Protein Negative (Negative) Urine Glucose (UA) Negative (Negative) Urine Ketones Trace H (Negative) Urine Blood Negative (Negative) Urine Nitrite Negative (Negative) Urine Bilirubin Negative (Negative) Urine Urobilinogen <2.0 (<2.0) mg/dL Ur Leukocyte Esterase Negative (Negative) 04/06/21 04/06/21 Range/Units 15:29 15:29 WBC (3.8-10.6) k/uL RBC (4.30-5.90) m/uL Hgb (13.0-17.5) gm/dL Hct (39.0-53.0) % MCV (80.0-100.0) fL MCH (25.0-35.0) pg MCHC (31.0-37.0) g/dL RDW (11.5-15.5) % Plt Count (150-450) k/uL MPV Neutrophils % % Lymphocytes % % Monocytes % % Eosinophils % % Basophils % % Neutrophils # (1.3-7.7) k/uL Lymphocytes # (1.0-4.8) k/uL Monocytes # (0-1.0) k/uL Eosinophils # (0-0.7) k/uL Basophils # (0-0.2) k/uL PT (9.0-12.0) sec INR (<1.2) APTT (22.0-30.0) sec Sodium 138 (137-145) mmol/L Potassium 4.3 (3.5-5.1) mmol/L Chloride 105 (98-107) mmol/L Carbon Dioxide 23 (22-30) mmol/L Anion Gap 10 mmol/L BUN 5 L (9-20) mg/dL Creatinine 0.69 (0.66-1.25) mg/dL Est GFR (CKD-EPI)AfAm >90 (>60 ml/min/1.73 sqM) Est GFR (CKD-EPI)NonAf >90 (>60 ml/min/1.73 sqM) Glucose 100 H (74-99) mg/dL Calcium 9.7 (8.4-10.2) mg/dL Total Bilirubin 1.8 H (0.2-1.3) mg/dL AST 42 (17-59) U/L ALT 36 (4-49) U/L Alkaline Phosphatase 62 (38-126) U/L Troponin I <0.012 (0.000-0.034) ng/mL Total Protein 8.0 (6.3-8.2) g/dL Albumin 4.7 (3.5-5.0) g/dL Lipase 160 (23-300) U/L Urine Color Urine Appearance (Clear) Urine pH (5.0-8.0) Ur Specific Metter (1.001-1.035) Urine Protein (Negative) Urine Glucose (UA) (Negative) Urine Ketones (Negative) Urine Blood (Negative) Urine Nitrite (Negative) Urine Bilirubin (Negative) Urine Urobilinogen (<2.0) mg/dL Ur Leukocyte Esterase (Negative) - EKG Data EKG Comments: EKG demonstrates normal sinus rhythm with a ventricular rate of 87. OK interval 160. QRS 86. QTC of 433. No acute ST segment elevations or depressions concerning for ischemic changes Disposition Clinical Impression: Right upper quadrant abdominal pain, Pre-syncope Disposition: HOME SELF-CARE Condition: Stable Instructions (If sedation given, give patient instructions): Near Syncope (ED), Epigastric Pain (ED) Additional Instructions: Please follow up with your PCP in 2-4 days. Return to the ED for any new or worsening symptoms. You may need further testing to include holter monitoring, an echo, and an EGD. Prescriptions: Sucralfate [Carafate] 1 gm PO ACHS #56 tablet Omeprazole 20 mg PO DAILY #30 tab Is patient prescribed a controlled substance at d/c from ED?: No Referrals: Alma Johnson MD [Primary Care Provider] - 1-2 days Time of Disposition: 18:20
--- NOTE | 2021-04-06 16:50 | US ---
EXAMINATION TYPE: US abdomen limited DATE OF EXAM: 04/06/2021 COMPARISON: NONE CLINICAL HISTORY: right upper quadrant pain. EC patient with history of hepatitis C and nausea and vo miting too. EXAM MEASUREMENTS: Liver Length: 12.4 cm Gallbladder Wall: 0.2 cm CBD: 0.4 cm Right Kidney: 11.9 x 5.1 x 3.4 cm Pancreas: hypoechoic, lobular margins (possible pancreatitis with hypoechoic appearance) Liver: wnl Gallbladder: minimally distended appearance, wall wnl Evidence for sonographic Blackwell's sign: no CBD: wnl Right Kidney: No hydronephrosis or masses seen MPV size is at upper limits of normal 1.3cm (less than or equal to 1.3 cm in supine view) IMPRESSION: No gallstones or dilated ducts. No discrete pancreatic mass. No focal liver defect. No ascites. There is patency of the portal venous system.
--- NOTE | 2021-04-06 18:05 | XR ---
EXAMINATION TYPE: XR chest 2V DATE OF EXAM: 04/06/2021 COMPARISON: 09/25/2017 HISTORY: Cough TECHNIQUE: FINDINGS: There is no heart failure nor confluent pneumonic infiltrate. Heart and mediastinum are nor mal. Diaphragm is normal. There are chest leads. Bony thorax is intact. IMPRESSION: Normal chest. No adverse change.
[2021-04-06] MEDS ORDERED: ONDANSETRON 4 MG ODT STARTER PACK 2 TAB BTL PO STA (18:18)
[2021-04-06 18:42] VITALS: BP 138/92; PULSE 83; RESP 16
== END 2021-04-06 18:43 | disposition home or self-care (01) ==
LOC: EC 14:47
DX: R10.11 Right upper quadrant pain (principal); R55 Syncope and collapse; F41.9 Anxiety disorder, unspecified; F31.9 Bipolar disorder, unspecified; F17.200 Nicotine dependence, unspecified, uncomplicated; F12.90 Cannabis use, unspecified, uncomplicated; F11.90 Opioid use, unspecified, uncomplicated; F10.10 Alcohol abuse, uncomplicated
CPT/HCPCS: 36415; 93005; 80053; 83690; 84484; 85025; 85610; 85730; 81003; 71046; 76705; 99284; 96360; S0119